=== PATIENT | female | born 1955 | race Caucasian/White ===

== ENCOUNTER → 2017-09-04 | Outpatient (CLI) | payer OTHER | LOC: FIMAGING 08:05 | PROVIDERS: ATTEND Nurse Practitioner | DX: K76.0 Fatty (change of) liver, not elsewhere classified (principal); K76.89 Other specified diseases of liver ==

== ENCOUNTER 2018-04-27 09:26 | Emergency (ER) | payer OTHER ==
--- NOTE | 2018-04-27 10:29 | EDPHY ---
H & P Smoking Status: Never smoked Time Seen by Provider: 04/27/18 10:02 HPI/ROS: CHIEF COMPLAINT: Left knee pain HISTORY OF PRESENT ILLNESS: 62-year-old female presents to the emergency department by private vehicle with concerns about pain in her left knee. Patient states yesterday while she was driving her car she felt her left knee cramp and kind of spasm. She states that by the time she got home to her home in [place], she was unable to bear weight and unable to fully straighten her left knee. She states this exact same thing happened 2 years ago while she was in [place]. She has not seen an orthopedic doctor for this. She is unable to bear weight because of severe pain in inability to straighten her left leg. She complains of isolated pain to the left knee. Denies any other trauma or complaints. ROS: Denies numbness or tingling in her toes, pain in the left ankle or hip. ( Jessica Burgess) Past Medical/Surgical History: Orthopedic surgery, hypothyroidism (Jessica Burgess) Social History: (PitabarryJessica M) Physical Exam: On examination the patient has no effusion noted to the left knee. No redness or warmth or signs of cellulitis. Patient has mild reproducible pain with palpation the left lateral joint line of her knee. No palpable crepitus or other bony abnormality. She is holding her left knee and some slight flexion. Unable to fully extend her left knee. She is able to fully flex her knee to at least 90 degrees her beyond with minimal pain. No pain with palpation in the left ankle or left hip. No pain with external or internal rotation of the left hip. Gait is not tested due to pain. (AdityaShanelJessica M) Constitutional: Initial Vital Signs Temperature (C) 36.8 C 04/27/18 09:34 Heart Rate 63 04/27/18 09:34 Respiratory Rate 18 04/27/18 09:34 Blood Pressure 124/84 H 04/27/18 09:34 O2 Sat (%) 95 04/27/18 09:34 O2 Delivery Mode Room Air Allergies/Adverse Reactions: Penicillins Allergy (Verified 04/27/18 09:33) Home Medications: Medication Instructions Recorded [employer] 04/27/18 MDM/Departure - [facility] Imaging: I viewed and interpreted images myself - [facility] Imaging Results: Imaging Impressions Knee X-Ray 04/27/18 10:25 Impression: Severe degenerative osteoarthritis. Procedures: The patient was placed in Ortho Glass knee splint since the patient was unable to fully extend her left knee for knee immobilizer. This was examined post application in good placement with normal [employer]. (Jessica Burgess) ED Course/Re-evaluation: 62-year-old female presents to the emergency department with severe left knee pain. X-rays reveal ears severe osteoarthritis. The patient also has pain with palpation in her lateral joint line and is unable to fully extend her left knee. I was concerned about possible meniscus injury. I do not think additional imaging is indicated in the emergency department. She has a scheduled appointment with her orthopedist tomorrow. She will keep this appointment. Again I do not think that the patient would tolerate a straight leg knee immobilizer and therefore and Ortho Glass splint with her knee held in some slight flexion was more comfortable for her. She was also given crutches. (Jessica Burgess) - Depart Disposition: Home, Routine, Self-Care Clinical Impression: Osteoarthritis of left knee Qualifiers: Osteoarthritis type: unspecified Qualified Code(s): M17.12 - Unilateral primary osteoarthritis, left knee Sprain of left knee Qualifiers: Encounter type: initial encounter Involved ligament of knee: unspecified ligament Qualified Code(s): S83.92XA - Sprain of unspecified site of left knee, initial encounter Condition: Good Instructions: Osteoarthritis (ED), Meniscus Tear (ED) Additional Instructions: Splint for comfort and support. Weightbear as tolerated or use crutches. Ibuprofen 600 mg every 8 hr as needed for pain. Keep scheduled appointment with orthopedic surgeon tomorrow. Referrals: Holden Kessler MD [Primary Care Provider] - As per Instructions Jared Marr MD [Medical Doctor] - As per Instructions (Orthopedic surgeon on- call)
[2018-04-27 12:04] VITALS: BP 120/77
== END 2018-04-27 12:20 | disposition home or self-care (01) ==
PROC: 2W3MX1Z Immobilization of Left Lower Extremity using Splint (ICD-10-PCS; principal; 2018-04-27)
DX: S83.92XA Sprain of unspecified site of left knee, initial encounter (principal); M17.12 Unilateral primary osteoarthritis, left knee; X58.XXXA Exposure to other specified factors, initial encounter; Y92.410 Unspecified street and highway as the place of occurrence of the external cause; Y99.8 Other external cause status; Y93.89 Activity, other specified